=== PATIENT | female | born 1970 | race Caucasian/White ===

== ENCOUNTER → 2025-01-04 | Day surgery (SDC) | payer BC ==
[~2025-01-04] MED LIST: ABILIFY2 MG PO; ARMOUR THYROID60 MG PO; FENTANYL CITRATE/PF 100MCG/2 ML INJ ONE; FLUOXETINE HCL20 M1 PO; GLYCOPYRROLATE INJ 0.2 MG/ML VIAL ONE; HYDROCHLOROTHIA25 MG PO; MIDAZOLAM HCL 2 MG/2 ML VIAL ONE; PROPOFOL IV EMULSION 50 ML IV ONE; ROCURONIUM BROMIDE 1 ML IV ONE; SUGAMMADEX SODIUM 200 MG/2 ML VIAL IV ONE; VITAMIN D250 MCG PO; ZOLOFT
[2025-01-04] MEDS: LACTATED RINGER'S 1,000 ML ONE (13:19)
[2025-01-04] MEDS: CEFAZOLIN SODIUM 2 GM ONE (13:20)
[2025-01-04 14:45] VITALS: BP 121/76; PULSE 77; RESP 17; O2SAT 98
== END | disposition home or self-care (01) ==
LOC: OR 10:24
PROVIDERS: ATTEND Podiatrist Foot & Ankle Surgery
DX: M24.572 Contracture, left ankle (principal); M24.575 Contracture, left foot; M77.32 Calcaneal spur, left foot; M25.775 Osteophyte, left foot; E11.9 Type 2 diabetes mellitus without complications; I10 Essential (primary) hypertension; E03.9 Hypothyroidism, unspecified; N20.0 Calculus of kidney; I83.90 Asymptomatic varicose veins of unspecified lower extremity; Z01.810 Encounter for preprocedural cardiovascular examination; Z79.899 Other long term (current) drug therapy
CPT/HCPCS: 27687; 28118; 93005; C1713; C1762; J2250; J2704; J3010; J7121